=== PATIENT | female | born 1985 | race Caucasian/White ===

== ENCOUNTER → 2018-04-25 13:21 | Outpatient (CLI) | payer MEDICAID, SELFPAY ==
[2018-04-25 13:47] LABS: Basophils # 0.1 K/mm3 (0-0.2); Basophils % 0.8 % (0.1-2.0); Eosinophils # 0.2 K/mm3 (0.0-0.4); Eosinophils % 2.5 % (0.1-12.0); Hematocrit 40.2 % (37.0-47.0); Hemoglobin 13.4 g/dL (12.2-16.2); Lymphocytes # 2.5 K/mm3 (0.7-4.5); Lymphocytes % 42.8 K/mm3 (10-50); Mean Corpuscular HGB Conc 33.4 g/dL (31.8-35.4); Mean Corpuscular Hemoglobin 30.2 pg (27.0-31.2); Mean Corpuscular Volume 90.5 fl (81-99); Mean Platelet Volume 7.3 fl (7.4-10.4); Monocytes # 0.5 K/mm3 (0.1-1.0); Monocytes % 7.7 % (1.7-9.3); Neutrophils # 2.7 K/mm3 (1.8-7.8); Neutrophils % 46.1 % (37.0-80.0); Platelet Count 340 K/mm3 (142-424); Red Blood Count 4.44 M/mm3 (4.20-5.40); Red Cell Distribution Width 12.9 % (11.5-17.5); White Blood Count 5.9 K/mm3 (4.8-10.8)
[2018-04-25 14:21] LABS: Alanine Aminotransferase 120 U/L (12-78); Albumin Level 3.7 gm/dL (3.4-5.0); Albumin/Globulin Ratio 0.8 (1.1-1.8); Alkaline Phosphatase 135 U/L (46-116); Anion Gap 16.3 mEq/L (5-15); Aspartate Amino Transferase 53 U/L (15-37); Bilirubin,Total 0.3 mg/dL (0.2-1.0); Blood Urea Nitrogen 12 mg/dL (7-18); Calcium 8.9 mg/dL (8.5-10.1); Carbon Dioxide 21 mmol/L (21.0-32.0); Chloride 104 mmol/L (98-107); Chol/HDL Ratio 2.2 (1-3.5); Cholesterol 169 mg/dL (140-200); Creatinine,Serum 0.59 mg/dL (0.55-1.02); Estimated Glomerular Filt Rate 117 ml/min (>60); GFR (African American) 141 ML/MIN (>60); Globulin 4.6 gm/dl (1.3-3.2); Glucose 80 mg/dL (74-106); HDL Cholesterol 76 mg/dL (29-89); LDL Cholesterol 74 mg/dL (0-130); Potassium 4.3 mmoL/L (3.5-5.1); Sodium 137 mmol/L (136-145); Thyroid Stimulating Hormone 1.46 uIU/ml (0.358-3.740); Total Protein,Serum 8.3 gm/dL (6.4-8.2); Triglycerides 96 mg/dL (30-200); VLDL Cholesterol 19 mg/dL (0-40)
[2018-04-25 14:43] LABS: Amphetamine/Metha Screen,Urine Negative ng/mL (<1000); Barbiturates Screen,Urine Negative ng/mL (<200); Benzodiazepines Screen,Urine Negative ng/mL (<200); Cannabinoid Screen,Urine Negative ng/mL (<50); Cocaine Screen,Urine Negative ng/mL (<300); Methadone Screen,Urine Negative ng/mL (<300); Opiate Screen,Urine Negative ng/mL (<300); Phencyclidine Screen,Urine Negative ng/mL (<25)
[2018-04-26 08:29] LABS: Hep A Ab, IgM Negative (Negative); Hepatitis B Core Antibody IgM Negative (Negative); Hepatitis B Surface Antigen Negative (Negative)
[2018-04-26 14:16] LABS: Hepatitis C Antibody >11.0 s/co ratio (0.0-0.9); Vitamin D 25 Hydroxy 26.6 ng/mL (30.0-100.0)
== END ==
LOC: LAB 13:22 → LAB.DROPOF 04-26 10:33
PROVIDERS: PCP Nurse Practitioner Family; Visit Provider Nurse Practitioner Family
DX: Z76.89 Persons encountering health services in other specified circumstances (principal); R53.83 Other fatigue; E66.9 Obesity, unspecified; E55.9 Vitamin D deficiency, unspecified
CPT/HCPCS: 80053; 80061; 80074; 80305; 82652; 84436; 84443; 85025

== ENCOUNTER → 2018-11-11 13:39 | Outpatient (CLI) | payer MEDICAID, SELFPAY ==
[2018-11-11 14:19] LABS: Amphetamine/Metha Screen,Urine Negative ng/mL (<1000); Barbiturates Screen,Urine Negative ng/mL (<200); Benzodiazepines Screen,Urine Negative ng/mL (<200); Cannabinoid Screen,Urine Positive ng/mL (<50); Cocaine Screen,Urine Negative ng/mL (<300); Methadone Screen,Urine Negative ng/mL (<300); Opiate Screen,Urine Negative ng/mL (<300); Phencyclidine Screen,Urine Negative ng/mL (<25)
== END ==
PROVIDERS: Visit Provider Nurse Practitioner Family
DX: E66.9 Obesity, unspecified (principal)
CPT/HCPCS: 80305

== ENCOUNTER → 2018-12-23 16:16 | Outpatient (CLI) | payer MEDICAID, SELFPAY ==
--- NOTE | 2018-12-23 16:24 | XR_ITS ---
XR shoulder RT min 2V HISTORY: ITS.REASON: pain ORDERING PHYSICIAN: Abby Haider APRN PATIENT AGE: 33 years Comparison: None FINDINGS: No fracture or dislocation. No lytic or blastic change. There is normal mineralization. The joint spaces are well-preserved. No significant degenerative/arthritic changes. No erosive changes evident. IMPRESSION: Negative, no acute finding
[2018-12-23 17:30] LABS: INR 1.04 (0.9-1.1); Prothrombin Time 10.8 seconds (9.4-11.8)
[2018-12-23 17:55] LABS: Erythrocyte Sedimentation Rate 5 mm/hr (0-20)
[2018-12-23 18:34] LABS: Alanine Aminotransferase 94 U/L (12-78); Albumin/Globulin Ratio 0.9 (1.1-1.8); Alkaline Phosphatase 121 U/L (46-116); Anion Gap 16.8 mEq/L (5-15); Aspartate Amino Transferase 43 U/L (15-37); Bilirubin,Total 0.3 mg/dL (0.2-1.0); Blood Urea Nitrogen 10 mg/dL (7-18); Calcium 9.1 mg/dL (8.5-10.1); Carbon Dioxide 24 mmol/L (21.0-32.0); Chloride 102 mmol/L (98-107); Creatinine,Serum 0.74 mg/dL (0.55-1.02); Estimated Glomerular Filt Rate 90 ml/min (>60); GFR (African American) 109 ML/MIN (>60); Globulin 4.5 gm/dl (1.3-3.2); Glucose 78 mg/dL (74-106); Potassium 3.8 mmoL/L (3.5-5.1); Sodium 139 mmol/L (136-145); Thyroid Stimulating Hormone 1.12 uIU/ml (0.358-3.740); Total Protein,Serum 8.5 gm/dL (6.4-8.2)
[2018-12-23 18:38] LABS: C-Reactive Protein < 0.2 mg/L (0.0-0.9)
[2018-12-25 17:48] LABS: HIV Screen 4th Generation wRfx Non Reactive (Non Reactive); Vitamin D 25 Hydroxy 26.5 ng/mL (30.0-100.0)
[2018-12-28 13:11] LABS: HCV Genotype Charge YES; Hepatitis C Genotype 1a (.)
== END ==
PROVIDERS: PCP Nurse Practitioner Family; Visit Provider Nurse Practitioner Family
DX: M25.511 Pain in right shoulder (principal); R53.83 Other fatigue; R76.8 Other specified abnormal immunological findings in serum; E66.9 Obesity, unspecified; R74.8 Abnormal levels of other serum enzymes; E55.9 Vitamin D deficiency, unspecified
CPT/HCPCS: 36415; 73030; 80053; 82652; 84443; 85610; 85651; 86140; 86703; 87522; 87902; G0432